=== PATIENT | male | born 1985 | race Caucasian/White ===

== ENCOUNTER 2016-06-08 15:26 | Emergency (ER) | payer BC ==
[~2016-06-08] VITALS: Wt 80.0 kg
[2016-06-08] MEDS ORDERED: LIDOCAINE/MYLANTA 40 ML BTL PO STA (17:18)
[2016-06-08] MEDS ORDERED: ONDANSETRON (ODT) 4 MG TAB ODT STA (17:18)
[2016-06-08] MEDS ORDERED: FAMOTIDINE 20 MG TAB PO STA (17:18)
--- NOTE | 2016-06-08 17:51 | ERD ---
ER Documentation Chief Complaint Date/Time DATE: 06/08/16 TIME: 17:50 Chief Complaint gen abdominal pain and diarrhea for the past few days. HPI Patient is a 30-year-old male with no past medical history who presents to the ED with abdominal pain, vomiting and diarrhea. He had an episode vomiting and diarrhea on Monday Patient states that he had a few episodes of nonbloody, nonblack, non-tarry diarrhea on Monday as well as nonbloody non-biliary emesis on Monday. No vomiting or diarrhea since. States that he has had bowel movements every day. States that he has been eating however he does have a decrease in appetite. He states that he had tuna today. Denies recent travel or change in foods. Denies headache, dizziness, chest pain, cough, shortness of breath or difficulty breathing. Denies sick contacts. No other complaints. ROS All systems reviewed and are negative except as per history of present illness. Medications Home Meds Active Scripts Electrolyte,Oral (Pedialyte) 1,000 Ml Solution, 100 ML PO Q6 Y for VOMITTING for 14 Days, ML Prov:NATALIE ANDRES PA-C 06/08/16 Ondansetron Hcl* (Zofran*) 4 Mg Tablet, 4 MG PO Q6H for NAUSEA AND/OR VOMITING, #30 TAB Prov:NATALIE ANDRES PA-C 06/08/16 Acetaminophen* (Tylophen*) 500 Mg Capsule, 1 CAP PO Q6H Y for PAIN AND OR ELEVATED TEMP, #20 CAP Prov:NATALIE ANDRES PA-C 06/08/16 Allergies Allergies: Coded Allergies: No Known Allergy (Unverified , 06/08/16) PMhx/Soc Medical and Surgical Hx: pt denies Medical Hx, pt denies Surgical Hx History of Surgery: Yes (Appendectomy) Hx Alcohol Use: Yes Hx Substance Use: No Hx Tobacco Use: No Smoking Status: Former smoker FmHx Family History: No coronary disease, No diabetes, No other Physical Exam Vitals Vital Signs Date Time Temp Pulse Resp B/P Pulse Ox O2 Delivery O2 Flow Rate FiO2 06/08/16 19:31 67 16 129/81 97 Room Air 06/08/16 15:29 98.9 67 21 127/84 100 Physical Exam GENERAL: Well-developed, well-nourished male. Appears in no acute distress. HEAD: Normocephalic, atraumatic. EYES: Pupils are equally reactive bilaterally. EOMs grossly intact. No conjunctival erythema. ENT: Moist mucous membranes. No uvula deviation. No kissing tonsils. No exudates. NECK: Supple. No lymphadenopathy or thyromegaly. No meningismus. negative kernig. negative brudinski. LUNG: Clear to auscultation bilaterally. No rhonchi, wheezing, rales or coarse breath sounds. HEART: Regular rate and rhythm. No murmurs, rubs or gallops. ABDOMEN: No scars, ecchymosis or rashes noted. Soft, and nondistended. Positive bowel sounds in all four quadrants. No rebound tenderness, no guarding. (-) McBurneys point tenderness. No CVA tenderness. tender in LLQ. BACK: No midline tenderness. Extremities: Equal pulses bilaterally. No peripheral clubbing, cyanosis or edema. No unilateral leg swelling. NEUROLOGIC: Alert and oriented. Moving all four extremities. 5/5 strength in all extremities. Normal speech. Steady gait. SKIN: Normal color. Warm and dry. No rashes or lesions. Capillary refill < 2 seconds Result Diagram: 06/08/16 1740 06/08/16 1740 Results 24 hrs Laboratory Tests Test 06/08/16 16:26 06/08/16 17:40 Urine Color LT. YELLOW Urine Clarity CLEAR Urine pH 6.0 Urine Specific [place] 1.020 Urine Ketones NEGATIVE Urine Nitrite NEGATIVE Urine Bilirubin NEGATIVE Urine Urobilinogen 0.2 E.U./dL Urine Leukocyte Esterase NEGATIVE Urine Hemoglobin NEGATIVE Urine Glucose NEGATIVE% Urine Total Protein NEGATIVE White Blood Count 9.410^3/ul Red Blood Count 5.4010^6/ul Hemoglobin 15.6g/dl Hematocrit 45.7% Mean Corpuscular Volume 84.6fl Mean Corpuscular Hemoglobin 28.9pg Mean Corpuscular Hemoglobin Concent 34.1g/dl Red Cell Distribution Width 12.0% Platelet Count 54535^3/UL Mean Platelet Volume 11.7fl Neutrophils % 52.0% Lymphocytes % 37.0% Monocytes % 8.5% Eosinophils % 1.8% Basophils % 0.3% Nucleated Red Blood Cells % 0.0/100WBC Neutrophils # 4.910^3/ul Lymphocytes # 3.510^3/ul Monocytes # 0.810^3/ul Eosinophils # 0.210^3/ul Basophils # 0.010^3/ul Nucleated Red Blood Cells # 0.010^3/ul Sodium Level 141mmol/L Potassium Level 4.4mmol/L Chloride Level 100mmol/L Carbon Dioxide Level 31mmol/L Anion Gap 14 Blood Urea Nitrogen 10mg/dl Creatinine 0.87mg/dl Glucose Level 104mg/dl Calcium Level 9.4mg/dl Total Bilirubin 0.3mg/dl Direct Bilirubin 0.00mg/dl Indirect Bilirubin 0.3mg/dl Aspartate Amino Transf (AST/SGOT) 37IU/L Alanine Aminotransferase (ALT/SGPT) 43IU/L Alkaline Phosphatase 54IU/L Total Protein 7.9g/dl Albumin 4.5g/dl Globulin 3.40g/dl Albumin/Globulin Ratio 1.32 Lipase 124U/L Current Medications Medications (Trade) Dose Ordered Sig/Rianna Route PRN Reason Start Time Stop Time Status Last Admin Dose Admin Famotidine (Pepcid) 20 mg ONCE STAT PO 06/08/16 17:18 06/08/16 17:21 DC 06/08/16 17:39 Miscellaneous Medication (Gi Cocktail (2)) 40 ml ONCE STAT PO 06/08/16 17:18 06/08/16 17:21 DC 06/08/16 17:38 Ondansetron HCl (Zofran Odt) 4 mg ONCE STAT ODT 06/08/16 17:18 06/08/16 17:21 DC 06/08/16 17:39 Procedures/MDM ER COURSE: I kept the patient and/or family informed of laboratory and diagnostic imaging results throughout the emergency room course. EKG, MONITORS, & DIAGNOSTIC IMAGING: [place] [id number] Radiology Main Line: [phone] DIAGNOSTIC IMAGING REPORT Patient: DAVID SHIPLEY : 1985 Age: 30 Sex: M MR #: [id number] DOS: 06/08/16 1718 Ordering MD: NATALIE ANDRES PA-C Location: [facility] Room/Bed: PROCEDURE: CT abdomen and pelvis without contrast. CLINICAL INDICATION: Abdominal pain TECHNIQUE: CT scan of the abdomen and pelvis without contrast was performed. Sagittal and coronal reformatted images were obtained from the axial source images. CTDI = 9.26 mGy; DLP = 529.14 mGy-cm COMPARISON: None available. FINDINGS: Visualized lower thorax: The lung bases are clear. There is no evidence for pleural effusion. Liver, gallbladder, pancreas and spleen: The liver is normal and size, contour and attenuation. There is no evidence for a liver mass or ductal dilatation. The gallbladder is unremarkable. No common bile duct abnormality is demonstrated. The pancreas is unremarkable. The spleen is normal in size. Adrenal glands and genitourinary system: The adrenal glands are normal bilaterally. The kidneys are normal and size, contour and attenuation with no evidence for masses, calculi or hydronephrosis. The ureters are unremarkable. No urinary bladder abnormality is demonstrated. The prostate gland is normal in size. The visualized scrotum shows no abnormality. Gastrointestinal system: A tiny sliding hiatal hernia is suggested, the stomach opacified with fluid and without wall thickening. There is solid fecal material within the distal colon consistent with an ileus pattern and constipation, no bowel obstruction is present and there is no evidence of wall thickening or pneumatosis. There is no evidence of appendicitis. Mild diverticular disease is present within the cecum and ascending colon with a moderate to marked amount of fecal debris throughout the colon concerning for constipation. There is no evidence for colitis or diverticulitis. Peritoneum, retroperitoneum, lymph nodes and vessels: The abdominal aorta is normal in caliber. There is no evidence for atherosclerotic calcification. The inferior vena cava is unremarkable. There is no evidence for adenopathy or mass. There is no ascites. No pneumoperitoneum is present Osseous structures and musculoskeletal findings: There is no fracture, lytic or blastic lesion. No muscular abnormality or soft tissue pathology is present. RPTAT:HJJR IMPRESSION: 1. Suggestion of an ileus pattern and constipation with some fecal material in the distal ileum but no evidence of bowel obstruction. 2. Diverticular disease in the cecum and right colon without evidence of diverticulitis or colitis. 3. Remainder of the examination is unremarkable. Miguelangel Yoni, Physician Date Time Electronically viewed and signed by Physician Talon on 06/08/2016 18:41 JR/ CC: NATALIE ANDRES PA-C PROCEDURES: Zofran, GI cocktail, Pepcid. Tolerated well with no adverse reaction. Seen improvement in symptoms. LAB INTERPRETATION: CBC showed no evidence of systemic infection or severe anemia. CMP showed no evidence of electrolyte abnormalities, severe acidosis, alkalosis, renal failure , or liver disease. Lipase showed no evidence of acute pancreatitis. MEDICAL DECISION MAKING: This is a 30-year-old male who presents with abdominal pain. Vital signs were reviewed. Patient is afebrile. Patient is not hypoxic. Patient is not toxic or ill-appearing. I consulted with Dr. Villafana who reviewed imaging studies and laboratory studies. CT scan as read by radiologist shows 1. Suggestion of an ileus pattern and constipation with some fecal material in the distal ileum but no evidence of bowel obstruction. Diverticular disease in the cecum and right colon without evidence of diverticulitis or colitis. Remainder of the examination is unremarkable. Patient's abdominal pain is also likely viral. Low suspicion for ACS, AAA, perforated ulcer, bowel obstruction, cholecystitis, choledocholithiasis, cholangitis, pancreatitis, hepatic abscess, appendicitis, diverticulitis, gastroenteritis, hepatitis, peptic ulcer disease, HELLP syndrome. I reexamined patient after administration of medication and he stated improvement in symptoms and is ready to go home. Copy of results was also given to patient. DISCHARGE: At this time, patient is stable for discharge and outpatient management with no new complaints during the ER course. Patient was sent home with Pedialyte, Zofran, Tylenol and to follow a BRAT diet. Patient will be discharged home with instructions to recheck for new or worsening symptoms such as fever, nausea, weakness, LOC and to follow up with primary care in the next 1-2 days. Patient was advised to return to the ER for any new or worsening symptoms. Plan was discussed and patient and/or family understands and agrees. Home instructions were given. Departure Diagnosis: Primary Impression: Abdominal pain Abdominal location: left lower quadrant Qualified Code: R10.32 - Left lower quadrant pain Condition: Stable NATALIE ANDRES PA-C Jun 08, 2016 17:51
[2016-06-08 17:55] LABS: ADD SCAN DIFF NO
[2016-06-08 17:59] LABS: BASOPHILS % 0.3 % (0.0-2.0); EOSINOPHILS # 0.2 10^3/ul (0.0-0.5); EOSINOPHILS % 1.8 % (0.0-7.0); HEMATOCRIT 45.7 % (42.0-52.0); HEMOGLOBIN 15.6 g/dl (14.0-18.0); LYMPHOCYTES # 3.5 10^3/ul (0.8-2.9); MEAN CORPUSCULAR HEMOGLOBIN 28.9 pg (29.0-33.0); MEAN CORPUSCULAR HGB CONC 34.1 g/dl (32.0-37.0); MEAN CORPUSCULAR VOLUME 84.6 fl (82.0-101.0); MEAN PLATELET VOLUME 11.7 fl (7.4-10.4); MONOCYTE # 0.8 10^3/ul (0.3-0.9); MONOCYTES % 8.5 % (0.0-11.0); NEUTROPHIL # 4.9 10^3/ul (1.6-7.5); PLATELET COUNT 254 10^3/UL (140-415); WHITE BLOOD COUNT 9.4 10^3/ul (4.8-10.8)
[2016-06-08 18:07] LABS: ALBUMIN 4.5 g/dl (3.3-4.9)
[2016-06-08 18:08] LABS: POTASSIUM 4.4 mmol/L (3.5-5.1)
[2016-06-08 18:10] LABS: ALBUMIN/GLOBULIN RATIO 1.32; BILIRUBIN,INDIRECT 0.3 mg/dl (0-1.1); BILIRUBIN,TOTAL 0.3 mg/dl (0.2-1.3); CREATININE 0.87 mg/dl (0.61-1.24); TOTAL PROTEIN 7.9 g/dl (6.1-8.1)
[2016-06-08 18:11] LABS: CALCIUM 9.4 mg/dl (8.4-10.2)
[2016-06-08 18:12] LABS: ADD UMIC NO; URINE BILIRUBIN (Dip) NEGATIVE (NEGATIVE); URINE BLOOD (Dip) NEGATIVE (NEGATIVE); URINE COLOR LT. YELLOW (YELLOW); URINE GLUCOSE (Dip) NEGATIVE (NEGATIVE); URINE KETONES (Dip) NEGATIVE (NEGATIVE); URINE LEUKOCYTE ESTERASE (Dip) NEGATIVE (NEGATIVE); URINE NITRITE (Dip) NEGATIVE (NEGATIVE); URINE TOTAL PROTEIN (Dip) NEGATIVE (NEGATIVE); URINE UROBILINOGEN (Dip) 0.2 E.U./dL (0.1-1.0)
--- NOTE | 2016-06-08 18:41 | RADRPT ---
PROCEDURE: CT abdomen and pelvis without contrast. CLINICAL INDICATION: Abdominal pain TECHNIQUE: CT scan of the abdomen and pelvis without contrast was performed. Sagittal and coronal reformatted images were obtained from the axial source images. CTDI = 9.26 mGy; DLP = 529.14 mGy-cm COMPARISON: None available. FINDINGS: Visualized lower thorax: The lung bases are clear. There is no evidence for pleural effusion. Liver, gallbladder, pancreas and spleen: The liver is normal and size, contour and attenuation. Th ere is no evidence for a liver mass or ductal dilatation. The gallbladder is unremarkable. No comm on bile duct abnormality is demonstrated. The pancreas is unremarkable. The spleen is normal in si ze. Adrenal glands and genitourinary system: The adrenal glands are normal bilaterally. The kidneys are normal and size, contour and attenuation with no evidence for masses, calculi or hydronephrosis. T he ureters are unremarkable. No urinary bladder abnormality is demonstrated. The prostate gland is normal in size. The visualized scrotum shows no abnormality. Gastrointestinal system: A tiny sliding hiatal hernia is suggested, the stomach opacified with flui d and without wall thickening. There is solid fecal material within the distal colon consistent wit h an ileus pattern and constipation, no bowel obstruction is present and there is no evidence of wal l thickening or pneumatosis. There is no evidence of appendicitis. Mild diverticular disease is pre sent within the cecum and ascending colon with a moderate to marked amount of fecal debris throughou t the colon concerning for constipation. There is no evidence for colitis or diverticulitis. Peritoneum, retroperitoneum, lymph nodes and vessels: The abdominal aorta is normal in caliber. The re is no evidence for atherosclerotic calcification. The inferior vena cava is unremarkable. There is no evidence for adenopathy or mass. There is no ascites. No pneumoperitoneum is present Osseous structures and musculoskeletal findings: There is no fracture, lytic or blastic lesion. No muscular abnormality or soft tissue pathology is present. RPTAT:HJJR IMPRESSION: 1. Suggestion of an ileus pattern and constipation with some fecal material in the distal ileum but no evidence of bowel obstruction. 2. Diverticular disease in the cecum and right colon without evidence of diverticulitis or colitis. 3. Remainder of the examination is unremarkable. Miguelangel Vallejo, Physician Date Time Electronically viewed and signed by Miguelangel Vallejo, Physician on 06/08/2016 18:41 JR/
[2016-06-08] MEDS ORDERED: ACET500C5 PO (19:14)
[2016-06-08] MEDS ORDERED: ELEC100080 PO (19:15)
[2016-06-08] MEDS ORDERED: ONDA4TAB8 PO (19:15)
[2016-06-08 19:31] VITALS: BP 129/81; PULSE 67; RESP 16
== END 2016-06-08 19:33 | disposition home or self-care (01) ==
LOC: FTE 15:26
DX: R10.32 Left lower quadrant pain (principal); R11.10 Vomiting, unspecified; Z87.891 Personal history of nicotine dependence
CPT/HCPCS: 74176; 80053; 81003; 83690; 85025; Z7610; 36415

== ENCOUNTER 2017-06-08 19:52 | Emergency (ER) | END 2017-06-08 20:48 | disposition home or self-care (01) ==

== ENCOUNTER 2017-11-26 21:41 | Emergency (ER) | END 2017-11-27 01:00 | disposition home or self-care (01) ==

== ENCOUNTER → 2018-07-13 | Outpatient (CLI) | payer OTHER ==
[~2018-07-13] MED LIST: ACET500C5 PO; AMOX1TAB10 PO; BARIUM SULF 2% 450 ML BTL (BERRY SMOOTHIE) PO ONE; CYCL10TA7 PO; ELEC100080 PO; HYDR-4011 PO; IBUP-1542 PO; NAPR-985 PO; ONDA4TAB8 PO
== END | disposition home or self-care (01) ==
LOC: C/S 09:34
PROVIDERS: ATTEND Internal Medicine
DX: R10.13 Epigastric pain (principal)
CPT/HCPCS: 74150